=== PATIENT | male | born 1955 | race Caucasian/White ===

== ENCOUNTER 2018-04-29 13:19 | Observation (INO) | payer BC ==
[2018-04-29] MEDS ORDERED: 0.9 % SODIUM CHLORIDE 1,000 ML BAG IV ONE (14:14)
[2018-04-29] MEDS ORDERED: DILTIAZEM 25MG/5ML VIAL IV ONE (14:39)
[2018-04-29 15:01] LABS: HEMATOCRIT 51.8 % (42.0-52.0); HEMOGLOBIN 17.9 gm/dl (14.0-18.0); MEAN CELL VOLUME 94.5 fl (81-97); MEAN CORPUSCULAR HEMOGLOBIN 32.7 pg (27-33); MEAN CORPUSCULAR HGB CONC 34.6 g/dl (32-36); MEAN PLATELET VOLUME 9.3 fl (7.4-10.4); PLATELET COUNT 524 K/uL (130-400); RED BLOOD COUNT 5.48 M/uL (4.40-5.70); RED CELL DISTRIBUTION WIDTH 13.2 % (11.5-14.5); WHITE BLOOD COUNT W/O DIFF 17.6 K/uL (4.2-12.2)
[2018-04-29 15:11] LABS: BLOOD UREA NITROGEN 21 mg/dL (8-23); CREATININE 1.1 mg/dL (0.7-1.2); EST GLOMERULAR FILTRATION RATE > 60 mL/min; TOTAL PROTEIN 7.5 g/dL (6.6-8.7)
[2018-04-29 15:13] LABS: GLUCOSE,RANDOM 121 mg/dL (74-109)
[2018-04-29 15:16] LABS: ALBUMIN 3.7 g/dL (4.0-5.0); ALKALINE PHOSPHATASE 147 U/L (55-149); ALT/SGPT 73 U/L (<41); AST/SGOT 36 U/L (10.0-50.0)
[2018-04-29 15:17] LABS: PLATELET ESTIMATE NORMAL (NORMAL)
[2018-04-29 15:34] LABS: URINE APPEARANCE SL CLOUDY; URINE BILIRUBIN SMALL (NEGATIVE); URINE BLOOD TRACE-L (NEGATIVE); URINE COLOR YELLOW; URINE GLUCOSE (UA) NEGATIVE (NEGATIVE); URINE KETONE 15 mg/dL (NEGATIVE); URINE LEUKOCYTE ESTERASE NEGATIVE (NEGATIVE); URINE NITRITE NEGATIVE (NEGATIVE); URINE PROTEIN TRACE (NEGATIVE)
--- NOTE | 2018-04-29 15:39 | Emergency Department Record ---
History of Present Illness - General Chief complaint: Flu Like Symptoms Stated complaint: FLU Time Seen by Provider: 04/29/18 14:14 Source: Patient Mode of Arrival: Ambulatory Limitations: No limitations - History of Present Illness Initial comments: pt has had 2.5wks of fever, body aches, green productive cough. today he had a near syncopal event. he was admitted to [facility] for 2 days and was told he had the flu. he has been on tamiflu for 5 days. he continues to feel worse w increasing sob and pain w inspiration in the chest MD Complaint: Lack of energy Onset/Timin -: Days(s) Severity scale (1-10): 10 Quality: Aching Consistency: Constant Associated Symptoms: Dysuria, Fever/chills, Nausea/vomiting - [place] Coma Scale Eye Response: (4) Open spontaneously Motor Response: (6) Obeys commands Verbal Response: (5) Oriented Adam Total: 15 - Related Data Home Medications Medication Instructions Recorded Confirmed Last Taken Acetaminophen 325 mg PO QID PRN 04/29/18 04/29/18 1 Day Ago ~04/28/18 Calcium Carbonate/Vitamin D3 1 each PO BID 04/29/18 04/29/18 1 Day Ago [Calcium 500+D Tablet Chew] ~04/28/18 Guaifenesin [Mucinex] 600 mg PO BID 04/29/18 04/29/18 1 Day Ago ~04/28/18 Ipratropium/Albuterol Sulfate 1 - 2 puff IH QID 04/29/18 04/29/18 1 Day Ago [Combivent] ~04/28/18 Oseltamivir Phosphate [Tamiflu] 75 mg PO BID 04/29/18 04/29/18 1 Day Ago ~04/28/18 Allergies Allergy/AdvReac Type Severity Reaction Status Date / Time azithromycin Allergy HYPERSENSIT Verified 04/29/18 14:30 IVITY cephalexin Allergy HIVES Verified 04/29/18 14:30 Latex, Natural Rubber Allergy RASH Verified 04/29/18 14:30 Tetracyclines Allergy RAPID Verified 04/29/18 14:24 HEART RATE clindamycin AdvReac ABDOMINAL Verified 04/29/18 14:30 PAIN Travel Screening - Travel/Exposure Within Last 30 Days Have you traveled within the last 30 days?: No - Travel/Exposure Within Last Year Have you traveled outside the [place] in the last year?: No - Additonal Travel Details Have you been exposed to anyone with a communicable illness?: No - Travel Symptoms Symptom Screening: Joint & Muscle Aches, Vomiting Review of Systems Reviewed: No additional complaints except as noted below Constitutional: Reports: As per HPI, Chills, Fever, Malaise, Weakness. Denies: Night sweats, Weight change Eyes: Reports: As per HPI. Denies: Eye discharge, Eye pain, Photophobia, Vision change ENT: Reports: As per HPI, Congestion. Denies: Dental pain, Ear pain, Epistaxis , Hearing loss, Throat pain Respiratory: Reports: As per HPI, Cough, Dyspnea. Denies: Hemoptysis, Stridor, Wheezes Cardiovascular: Reports: As per HPI. Denies: Arrhythmia, Chest pain, Dyspnea on exertion, Edema, Murmurs, Orthopnea, Palpitations, Paroxysmal nocturnal dyspnea, Rheumatic Fever, Syncope Endocrine: Reports: As per HPI. Denies: Fatigue, Heat or cold intolerance, Polydipsia, Polyuria Gastrointestinal: Reports: As per HPI. Denies: Abdominal pain, Constipation, Diarrhea, Hematemesis, Hematochezia, Melena, Nausea, Vomiting Genitourinary: Reports: As per HPI. Denies: Dysuria, Frequency, Hematuria, Incontinence, Retention, Testicular pain, Testicular mass, Urgency Musculoskeletal: Reports: As per HPI. Denies: Arthralgia, Back pain, Gout, Joint swelling, Myalgia, Neck pain Skin: Reports: As per HPI. Denies: Bruising, Change in color, Change in hair/ nails, Lesions, Pruritus, Rash Neurological: Reports: As per HPI. Denies: Abnormal gait, Confusion, Headache, Numbness, Paresthesias, Seizure, Tingling, Tremors, Vertigo, Weakness Psychiatric: Reports: As per HPI. Denies: Anxiety, Auditory hallucinations, Depression, Homicidal thoughts, Suicidal thoughts, Visual hallucinations Hematological/Lymphatic: Reports: As per HPI. Denies: Anemia, Blood Clots, Easy bleeding, Easy bruising, Swollen glands Past Medical History - SOCIAL HISTORY Smoking Status: Current every day smoker Alcohol Use: Occasional Drug Use: None - RESPIRATORY Hx Respiratory Disorders: Yes Hx COPD: Yes - CARDIOVASCULAR Hx Cardio Disorders: No - NEURO Hx Neuro Disorders: No - GI Hx GI Disorders: Yes Hx Diverticulitis: Yes - Hx Genitourinary Disorders: No - ENDOCRINE Hx Endocrine Disorders: No - MUSCULOSKELETAL Hx Musculoskeletal Disorders: No - PSYCH Hx Psych Problems: No - HEMATOLOGY/ONCOLOGY Hx Hematology/Oncology Disorders: No Family Medical History Any Significant Family History?: No Physical Exam - General General Appearance: Alert, Oriented x3, Cooperative, Mild distress - Head Head exam: Normal inspection - Eye Eye exam: Normal appearance, PERRL, EOMI Pupils: Normal accommodation - ENT ENT exam: Normal exam, Mucous membranes moist, Normal external ear exam, Normal orophraynx Ear exam: Normal external inspection. negative: External canal tenderness Nasal Exam: Normal inspection. negative: Discharge, Sinus tenderness Mouth exam: Normal external inspection, Tongue normal Teeth exam: Normal inspection. negative: Dental caries Throat exam: Normal inspection. negative: Tonsillar erythema, Tonsillar exudate - Neck Neck exam: Normal inspection, Full ROM. negative: Tenderness - Respiratory Respiratory exam: Rales, Respiratory distress - Cardiovascular Cardiovascular Exam: Normal heart sounds, Irregular rhythm, Tachycardia - GI/Abdominal GI/Abdominal exam: Soft, Normal bowel sounds. negative: Tenderness - Rectal Rectal exam: Deferred - exam: Deferred - Extremities Extremities exam: Normal inspection, Full ROM, Normal capillary refill. negative: Tenderness - Back Back exam: Reports: Normal inspection, Full ROM. Denies: Muscle spasm, Rash noted, Tenderness - Neurological Neurological exam: Alert, CN II-XII intact, Normal gait, Oriented X3 - Psychiatric Psychiatric exam: Normal affect, Normal mood - Skin Skin exam: Dry, Intact, Normal color, Warm Course Vital Signs 04/29/18 14:05 Temperature 97.8 F Pulse Rate 168 H Respiratory 24 Rate Blood Pressure 104/77 Pulse Ox 94 L - Reevaluation(s) Reevaluation #1: 04/29/18 18:08 d/w dr mendez who stated to not start on bloodthinners at this time and to get an echo tomorrow Medical Decision Making - Lab Data Result diagrams: 04/29/18 14:20 04/29/18 14:20 Lab Results 04/29/18 04/29/18 04/29/18 Range/Units 14:20 14:20 14:24 WBC 17.6 H (4.2-12.2) K/uL RBC 5.48 (4.40-5.70) M/uL Hgb 17.9 (14.0-18.0) gm/dl Hct 51.8 (42.0-52.0) % MCV 94.5 (81-97) fl MCH 32.7 (27-33) pg MCHC 34.6 (32-36) g/dl RDW 13.2 (11.5-14.5) % Plt Count 524 H (130-400) K/uL MPV 9.3 (7.4-10.4) fl Neutrophils % 83.0 H (47-80) % Eosinophils % Not Reportable Basophils % Not Reportable Lymphocytes 11.0 L (16-45) % Monocytes 6.0 (0-9) % Platelet Estimate Normal (NORMAL) RBC Morphology Normal D-Dimer 0.66 H (0-0.59) mg/L FEU Sodium 137 (136-145) mmol/L Potassium 3.8 (3.4-4.5) mmol/L Chloride 94 L (98-107) mmol/L Carbon Dioxide 26.0 (22-29) mmol/L Anion Gap 17.0 H (7-16) BUN 21 (8-23) mg/dL Creatinine 1.1 (0.7-1.2) mg/dL Estimated GFR > 60 mL/min Random Glucose 121 H (74-109) mg/dL Calcium 9.8 (8.8-10.2) mg/dL Total Bilirubin 1.40 H (0.2-1.0) mg/dL AST 36 (10.0-50.0) U/L ALT 73 H (<41) U/L Alkaline Phosphatase 147 (55-149) U/L Total Protein 7.5 (6.6-8.7) g/dL Albumin 3.7 L (4.0-5.0) g/dL Globulin 3.8 (1.4-4.8) gm/dL Albumin/Globulin Ratio 1.0 L (1.1-1.8) Urine Color Urine Appearance Urine pH (5.0-8.0) Ur Specific [place] (1.002-1.030) Urine Protein (NEGATIVE) Urine Glucose (UA) (NEGATIVE) Urine Ketones (NEGATIVE) Urine Blood (NEGATIVE) Urine Nitrite (NEGATIVE) Urine Bilirubin (NEGATIVE) Urine Urobilinogen (0.20 - 1.00) E.U./dL Ur Leukocyte Esterase (NEGATIVE) 04/29/18 Range/Units 15:20 WBC (4.2-12.2) K/uL RBC (4.40-5.70) M/uL Hgb (14.0-18.0) gm/dl Hct (42.0-52.0) % MCV (81-97) fl MCH (27-33) pg MCHC (32-36) g/dl RDW (11.5-14.5) % Plt Count (130-400) K/uL MPV (7.4-10.4) fl Neutrophils % (47-80) % Eosinophils % Basophils % Lymphocytes (16-45) % Monocytes (0-9) % Platelet Estimate (NORMAL) RBC Morphology D-Dimer (0-0.59) mg/L FEU Sodium (136-145) mmol/L Potassium (3.4-4.5) mmol/L Chloride (98-107) mmol/L Carbon Dioxide (22-29) mmol/L Anion Gap (7-16) BUN (8-23) mg/dL Creatinine (0.7-1.2) mg/dL Estimated GFR mL/min Random Glucose (74-109) mg/dL Calcium (8.8-10.2) mg/dL Total Bilirubin (0.2-1.0) mg/dL AST (10.0-50.0) U/L ALT (<41) U/L Alkaline Phosphatase (55-149) U/L Total Protein (6.6-8.7) g/dL Albumin (4.0-5.0) g/dL Globulin (1.4-4.8) gm/dL Albumin/Globulin Ratio (1.1-1.8) Urine Color Yellow Urine Appearance Sl cloudy Urine pH 7.0 (5.0-8.0) Ur Specific [place] 1.015 (1.002-1.030) Urine Protein Trace H (NEGATIVE) Urine Glucose (UA) Negative (NEGATIVE) Urine Ketones 15 mg/dl H (NEGATIVE) Urine Blood Trace-l (NEGATIVE) Urine Nitrite Negative (NEGATIVE) Urine Bilirubin Small H (NEGATIVE) Urine Urobilinogen 1.0 (0.20 - 1.00) E.U./dL Ur Leukocyte Esterase Negative (NEGATIVE) Disposition Disposition: Admit Clinical Impression: Paroxysmal A-fib Pneumonia Qualifiers: Pneumonia type: due to unspecified organism Laterality: bilateral Lung location : lower lobe of lung Qualified Code(s): J18.1 - Lobar pneumonia, unspecified organism COPD (chronic obstructive pulmonary disease) Qualifiers: COPD type: unspecified COPD Qualified Code(s): J44.9 - Chronic obstructive pulmonary disease, unspecified Disposition: Still a Patient at [facility] Decision to Admit: Admit from ER Decision to Admit Date: 04/29/18 Decision to Admit Time: 18:08 Forms: Patient Portal Access Quality - Quality Measures Quality Measures: N/A - Blood Pressure Screening Does Patient Have Any of the Following: No Blood Pressure Classification: Normal BP Reading Systolic Measurement: 104 Diastolic Measurement: 77 Screening for High Blood Pressure: < Normal BP, F/U Not Required > [G8783]
[2018-04-29 15:40] LABS: URINE AMORPHOUS SEDIMENT 1+; URINE WBC NONE SEEN (0-2/hpf)
[2018-04-29] MEDS ORDERED: LEVOFLOXACIN/D5W 750 MG/150 ML BAG IVPB ONE (17:42)
[2018-04-29] MEDS ORDERED: IPRATROPIUM/ALBUTEROL (0.5MG/3MG) NEB INH ONE (18:03)
[2018-04-29] MEDS ORDERED: 0.9 % SODIUM CHLORIDE 1000ML 1,000 ML IV ONE (18:35)
[2018-04-29] MEDS ORDERED: ALBUTEROL SULFATE (0.083%) 2.5 MG/3 ML NEB INH PRN (19:03)
[2018-04-29] MEDS: ACETAMINOPHEN 500 MG TABLET PO PRN (19:36)
[2018-04-29] MEDS: LEVOFLOXACIN/D5W 750 MG/150 ML BAG IVPB SCH (20:49)
[2018-04-29] MEDS: METHYLPREDNISOLONE PF 125MG/VIAL IVP SCH (20:49)
[2018-04-29] MEDS: OSTELTAMIVIR 75 MG CAP PO SCH (21:45)
[2018-04-30 07:47] LABS: HEMATOCRIT 45.4 % (42.0-52.0); HEMOGLOBIN 15.6 gm/dl (14.0-18.0); MEAN CELL VOLUME 95.6 fl (81-97); MEAN CORPUSCULAR HEMOGLOBIN 32.8 pg (27-33); MEAN CORPUSCULAR HGB CONC 34.4 g/dl (32-36); MEAN PLATELET VOLUME 8.7 fl (7.4-10.4); PLATELET COUNT 427 K/uL (130-400); RED BLOOD COUNT 4.75 M/uL (4.40-5.70); WHITE BLOOD COUNT W/O DIFF 12.5 K/uL (4.2-12.2)
[2018-04-30] MEDS: ACETAMINOPHEN 500 MG TABLET PO PRN (07:49)
--- NOTE | 2018-04-30 07:51 | CT ANGIOGRAM REPORT ---
EXAM: CT ANGIOGRAM OF THE CHEST HISTORY: COUGH, HEADACHE, JOINT PAIN. TECHNIQUE: CT angiogram of the chest was obtained using 80 ml Omnipaque 350 intravenous contrast. Additional maximum intensity projection images were created on an independent workstation. Comparison: None. FINDINGS: Helical opacification of the pulmonary arteries. No pulmonary artery filling defects are seen to suggest embolism. The thoracic aorta is calcified and nondilated. No significant pericardial fluid collection. Coronary artery calcifications are noted. Multiple subcentimeter mediastinal and hilar lymph nodes are noted. No pathologically enlarged lymph nodes are seen. Extensive pulmonary emphysema with prominent anterior left upper lobe bulla and multiple biapical subpleural blebs. Scattered tree-in-bud nodularity involving the anterior inferior right upper lobe, right middle lobe, right lower lobe and scattered throughout the left lung base. There is suggestion of accessory horizontal fissure in the left lung. Peripheral bronchial mucous plugging in the left lower lobe with associated atelectasis. No pleural effusion or pneumothorax. No definite acute osseous findings. Small sclerotic focus in the T9 vertebral body, indeterminate, but could represent a bone island. The visualized upper abdominal structures are unremarkable. IMPRESSION: 1. NO EVIDENCE OF PULMONARY EMPHYSEMA. 2. SCATTERED BILATERAL TREE-IN-BUD PULMONARY NODULARITY SUGGESTING INFECTIOUS OR INFLAMMATORY BRONCHIOLITIS. MUCOUS PLUGGING IN THE LEFT LOWER LOBE WITH ASSOCIATED MILD ATELECTASIS. 3. EXTENSIVE PULMONARY EMPHYSEMA WITH SCATTERED BLEBS AND BULLA. JOB NUMBER: [id number] [facility]
[2018-04-30 08:01] LABS: ALBUMIN 3.1 g/dL (4.0-5.0); ALKALINE PHOSPHATASE 96 U/L (55-149); ALT/SGPT 55 U/L (<41); AST/SGOT 22 U/L (10.0-50.0); BLOOD UREA NITROGEN 14 mg/dL (8-23); CREATININE 0.7 mg/dL (0.7-1.2); EST GLOMERULAR FILTRATION RATE > 60 mL/min; GLUCOSE,RANDOM 103 mg/dL (74-109); TOTAL PROTEIN 6.2 g/dL (6.6-8.7)
[2018-04-30] MEDS: IPRATROPIUM/ALBUTEROL (0.5MG/3MG) NEB INH PRN ×2 (09:31→20:09)
[2018-04-30] MEDS: OSTELTAMIVIR 75 MG CAP PO SCH (09:45)
[2018-04-30] MEDS: METHYLPREDNISOLONE PF 125MG/VIAL IVP SCH ×2 (09:46→21:38)
--- NOTE | 2018-04-30 11:08 | History & Physical ---
History of Present Illness - Date of Service Date of Service for History & Physical: 04/30/18 - History of Present Illness Admitting Diagnosis: pneumonia, paroxsmal afib, copd History of Present Illness: 62 year old male patient presents to ED for continued fever, fatigue, and shortness of breath over the past 2 weeks. Patient was seen at an urgent care in [place] 2 weeks ago and diagnosed with influenza and given Tamiflu. Patient had continued shortness of breath and fatigue and was then hospitalized at [facility] for influenza. Patient states he did not feel any better upon discharge from [facility]. Patient reported feeling fatigue, shortness of breath, and feelings of pre-syncope prior to coming to the ED yesterday. Patient's past medical history includes COPD and current 1ppd smoker PCP: Dr. Chavez ED Course: VS: Temp 97.8F, HR 168, RR 24, BP 104/77, Pulse ox 94% Patient given 10mg Cardizem IVP and converted from a-fib rate 160's to NSR rate 80s 2L IV fluids D-dimer 0.66, WBC 17.6, UA + for ketones and protein Chest CTA: negative for PE, infectious vs inflammatory bronchiolitis, and pulmonary emphysema Spoke with Dr. Elliott for new-onset paroxysmal afib, recommended holding anticoagulant and getting ECHO at this time 04/30/18: A&O x 4, patient resting comfortably in bed. Patient reports significant improvement in symptoms since admission, reports continued shortness of breath with minimal exertion. Patient on 2L oxygen via [place] at this time, receiving Duoneb q6h. 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 Travel Screening - Travel/Exposure Within Last 30 Days Have you traveled within the last 30 days?: No - Travel/Exposure Within Last Year Have you traveled outside the [place] in the last year?: No - Additonal Travel Details Have you been exposed to anyone with a communicable illness?: No - Travel Symptoms Symptom Screening: None Review of Systems Reviewed: No additional complaints except as noted below Constitutional: Reports: As per HPI, Chills, Fever, Malaise, Weakness. Denies: Night sweats, Weight change Eyes: Reports: As per HPI. Denies: Eye discharge, Eye pain, Photophobia, Vision change ENT: Reports: As per HPI, Congestion. Denies: Dental pain, Ear pain, Epistaxis , Hearing loss, Throat pain Respiratory: Reports: As per HPI, Cough, Dyspnea. Denies: Hemoptysis, Stridor, Wheezes Cardiovascular: Reports: As per HPI. Denies: Arrhythmia, Chest pain, Dyspnea on exertion, Edema, Murmurs, Orthopnea, Palpitations, Paroxysmal nocturnal dyspnea, Rheumatic Fever, Syncope Endocrine: Reports: As per HPI. Denies: Fatigue, Heat or cold intolerance, Polydipsia, Polyuria Gastrointestinal: Reports: As per HPI. Denies: Abdominal pain, Constipation, Diarrhea, Hematemesis, Hematochezia, Melena, Nausea, Vomiting Genitourinary: Reports: As per HPI. Denies: Dysuria, Frequency, Hematuria, Incontinence, Retention, Testicular pain, Testicular mass, Urgency Musculoskeletal: Reports: As per HPI. Denies: Arthralgia, Back pain, Gout, Joint swelling, Myalgia, Neck pain Skin: Reports: As per HPI. Denies: Bruising, Change in color, Change in hair/ nails, Lesions, Pruritus, Rash Neurological: Reports: As per HPI. Denies: Abnormal gait, Confusion, Headache, Numbness, Paresthesias, Seizure, Tingling, Tremors, Vertigo, Weakness Psychiatric: Reports: As per HPI. Denies: Anxiety, Auditory hallucinations, Depression, Homicidal thoughts, Suicidal thoughts, Visual hallucinations Hematological/Lymphatic: Reports: As per HPI. Denies: Anemia, Blood Clots, Easy bleeding, Easy bruising, Swollen glands Past Medical History - SOCIAL HISTORY Smoking Status: Current every day smoker - RESPIRATORY Hx Respiratory Disorders: Yes Hx COPD: Yes - CARDIOVASCULAR Hx Cardio Disorders: No - NEURO Hx Neuro Disorders: No - GI Hx GI Disorders: Yes Hx Diverticulitis: Yes - Hx Genitourinary Disorders: No - ENDOCRINE Hx Endocrine Disorders: No - MUSCULOSKELETAL Hx Musculoskeletal Disorders: No - PSYCH Hx Psych Problems: No - HEMATOLOGY/ONCOLOGY Hx Hematology/Oncology Disorders: No Family Medical History Any Significant Family History?: No H&P Meds/Allergies - Allergies Allergies: Allergies Allergy/AdvReac Type Severity Reaction Status Date / Time azithromycin Allergy HYPERSENSIT Verified 04/29/18 14:30 IVITY cephalexin Allergy HIVES Verified 04/29/18 14:30 Latex, Natural Rubber Allergy RASH Verified 04/29/18 14:30 Tetracyclines Allergy RAPID Verified 04/29/18 14:24 HEART RATE clindamycin AdvReac ABDOMINAL Verified 04/29/18 14:30 PAIN - Home Medications Home Medications Medication Instructions Recorded Confirmed Last Taken Acetaminophen 325 mg PO QID PRN 04/29/18 04/29/18 1 Day Ago ~04/28/18 Calcium Carbonate/Vitamin D3 1 each PO BID 04/29/18 04/29/18 1 Day Ago [Calcium 500+D Tablet Chew] ~04/28/18 Guaifenesin [Mucinex] 600 mg PO BID 04/29/18 04/29/18 1 Day Ago ~04/28/18 Ipratropium/Albuterol Sulfate 1 - 2 puff IH QID 04/29/18 04/29/18 1 Day Ago [Combivent] ~04/28/18 Oseltamivir Phosphate [Tamiflu] 75 mg PO BID 04/29/18 04/29/18 1 Day Ago ~04/28/18 - Active Medications Active Medications: Current Medications Acetaminophen (Tylenol 500mg Tab) 1,000 mg PO Q6H PRN PRN Reason: PAIN - MILD(1-4)/FEVER Last Admin: 04/30/18 07:49 Dose: 1,000 mg Albuterol Sulfate (Albuterol Sulfate) 2.5 mg INH RESP.Q4H PRN PRN Reason: DIFFICULTY IN BREATHING Albuterol/Ipratropium (Duoneb) 3 ml INH RESP.Q6H PRN PRN Reason: WHEEZING Last Admin: 04/30/18 09:31 Dose: 3 ml Enoxaparin Sodium (Lovenox) 40 mg SQ DAILY [facility] Levofloxacin/Dextrose (Levaquin 750mg Ivpb) 750 mg in 150 mls @ 125 mls/hr IVPB Q24H [facility] Stop: 05/04/18 19:04 Last Admin: 04/29/18 20:49 Dose: Not Given Sodium Chloride () 1,000 mls @ 100 mls/hr IV .Q10H [facility] Methylprednisolone Sodium Succinate (Solu-Medrol) 60 mg IVP Q8HR [facility] Oseltamivir Phosphate (Tamiflu) 75 mg PO BID [facility] Last Admin: 04/30/18 09:45 Dose: 75 mg Physical Exam - Vital Signs Vital Signs: Vital Signs - Last 24 Hrs Temp Pulse Pulse Pulse Resp BP BP 04/30/18 09:31 105 H 18 04/30/18 06:00 97.9 F 100 H 20 134/89 04/29/18 21:06 97.5 F L 105 H 22 132/93 04/29/18 21:00 82 22 04/29/18 19:43 18 04/29/18 19:04 107 H 18 140/95 04/29/18 18:10 110 H 18 04/29/18 17:30 98 H 132/104 04/29/18 17:00 95 H 130/93 04/29/18 16:30 93 H 131/90 04/29/18 16:12 94 H 16 130/93 04/29/18 15:30 86 16 04/29/18 15:10 84 04/29/18 14:05 97.8 F 168 H 24 104/77 Pulse Ox 04/30/18 09:31 96 04/30/18 06:00 96 04/29/18 21:06 97 04/29/18 21:00 04/29/18 19:43 04/29/18 19:04 95 04/29/18 18:10 95 04/29/18 17:30 04/29/18 17:00 04/29/18 16:30 04/29/18 16:12 97 04/29/18 15:30 95 04/29/18 15:10 04/29/18 14:05 94 L - General General Appearance: Alert, Oriented x3, Cooperative, No acute distress Limitations: No limitations - Head Head exam: Normal inspection - Eye Eye exam: Normal appearance, PERRL, EOMI Pupils: Normal accommodation - ENT ENT exam: Normal exam, Mucous membranes dry, Normal external ear exam Ear exam: Normal external inspection. negative: External canal tenderness Nasal Exam: Normal inspection. negative: Discharge, Sinus tenderness Mouth exam: Normal external inspection, Tongue normal Teeth exam: Normal inspection. negative: Dental caries Throat exam: Normal inspection. negative: Tonsillar erythema, Tonsillar exudate - Neck Neck exam: Normal inspection, Full ROM. negative: Tenderness - Respiratory Respiratory exam: Rales (RLL, LLL). negative: Respiratory distress - Cardiovascular Cardiovascular Exam: Regular rate, Normal rhythm, Normal heart sounds Peripheral Pulses: 2+: Radial (R), Radial (L), Dorsalis Pedis (R), Dorsalis Pedis (L) - GI/Abdominal GI/Abdominal exam: Soft, Normal bowel sounds. negative: Tenderness - Rectal Rectal exam: Deferred - exam: Deferred - Extremities Extremities exam: Normal inspection, Full ROM, Normal capillary refill. negative: Tenderness - Back Back exam: Reports: Normal inspection, Full ROM. Denies: Muscle spasm, Rash noted, Tenderness - Neurological Neurological exam: Alert, Normal gait, Oriented X3 - Psychiatric Psychiatric exam: Normal affect, Normal mood - Skin Skin exam: Dry, Intact, Normal color, Warm Results - Labs Result Diagrams: 04/30/18 07:35 04/30/18 07:35 Labs Last 24 Hours: Laboratory Results - last 24 hr 04/29/18 04/29/18 04/29/18 14:20 14:20 14:24 WBC 17.6 H RBC 5.48 Hgb 17.9 Hct 51.8 MCV 94.5 MCH 32.7 MCHC 34.6 RDW 13.2 Plt Count 524 H MPV 9.3 Neutrophils % 83.0 H Band Neutrophils % Eosinophils % Not Reportable Basophils % Not Reportable Lymphocytes 11.0 L Monocytes 6.0 Basophils Platelet Estimate Normal RBC Morphology Normal Eosinophil Count D-Dimer 0.66 H Sodium 137 Potassium 3.8 Chloride 94 L Carbon Dioxide 26.0 Anion Gap 17.0 H BUN 21 Creatinine 1.1 Estimated GFR > 60 Random Glucose 121 H Calcium 9.8 Total Bilirubin 1.40 H AST 36 ALT 73 H Alkaline Phosphatase 147 Total Protein 7.5 Albumin 3.7 L Globulin 3.8 Albumin/Globulin Ratio 1.0 L Urine Color Urine Appearance Urine pH Ur Specific Howe Urine Protein Urine Glucose (UA) Urine Ketones Urine Blood Urine Nitrite Urine Bilirubin Urine Urobilinogen Ur Leukocyte Esterase Urine RBC Urine WBC Ur Epithelial Cells Amorphous Sediment 04/29/18 04/30/18 04/30/18 15:20 07:35 07:35 WBC 12.5 H RBC 4.75 Hgb 15.6 Hct 45.4 MCV 95.6 MCH 32.8 MCHC 34.4 RDW 13.0 Plt Count 427 H MPV 8.7 Neutrophils % 81.0 H Band Neutrophils % 4.0 Eosinophils % Not Reportable Basophils % Not Reportable Lymphocytes 8.0 L Monocytes 5.0 Basophils 1.0 Platelet Estimate RBC Morphology Eosinophil Count 1.0 D-Dimer Sodium 139 Potassium 3.4 Chloride 99 Carbon Dioxide 28.0 Anion Gap 12.0 BUN 14 Creatinine 0.7 Estimated GFR > 60 Random Glucose 103 Calcium 8.8 Total Bilirubin 0.90 AST 22 ALT 55 H Alkaline Phosphatase 96 Total Protein 6.2 L Albumin 3.1 L Globulin 3.1 Albumin/Globulin Ratio 1.0 L Urine Color Yellow Urine Appearance Sl cloudy Urine pH 7.0 Ur Specific Howe 1.015 Urine Protein Trace H Urine Glucose (UA) Negative Urine Ketones 15 mg/dl H Urine Blood Trace-l Urine Nitrite Negative Urine Bilirubin Small H Urine Urobilinogen 1.0 Ur Leukocyte Esterase Negative Urine RBC 3 - 6 Urine WBC None seen Ur Epithelial Cells 3 - 6 Amorphous Sediment 1+ VTE H&P Assessment - Risk for VTE Risk for VTE: Yes Risk Level: Moderate Risk Assessment Date: 04/30/18 Risk Assessment Time: 11:40 VTE Orders Placed or Will Be Placed: Yes Plan - Inpatient Certification Inpatient Certification: Admit to inpatient care: Based on my medical assessment, after consideration of patient's risk factors (age, co-morbidities and patient presenting symptoms and acuity), I expect that this patient will remain in the hospital greater than or equal to two midnights and that the services needed warrant inpatient care because: Patient Risk Factors: [age, history of COPD, recent hospitalization with influenza, bronchiolitis] Estimated length of stay: The patient may reasonably be expected to be discharged or transferred to a hospital within 36-96 hours after admission to [facility]. Services needed: [IV antibiotics, supplemental oxygen, nebulized breathing treatments, cardiac monitoring, cardiology consult] Post hospital care (if known): I certify that my determination is in accordance with my understanding of Medicare requirements for reasonable and necessary inpatient services. 04/30/18 11:40 - Detailed Diagnosis and Plan (1) Bronchiolitis Current Visit: Yes Status: Acute Base Code: J21.9 - ACUTE BRONCHIOLITIS, UNSPECIFIED Comment: 04/30/18: -CTA chest: infectious v. inflammatory bronchiolitis, negative for PE, pulmonary emphysema -Levaquin 750mg IVP started in ED, will continue daily dose -Solumedrol 60mg q8h -Duoneb q6h -NS 0.9% @100ml/hr for rehydration -Supplemental oxygen to keep pulse ox >92% (2) Paroxysmal A-fib Current Visit: Yes Status: Acute Base Code: I48.0 - PAROXYSMAL ATRIAL FIBRILLATION Comment: 04/30/18: -A-fib in ED, rate 168. 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 -Cardiology consult pending (3) COPD (chronic obstructive pulmonary disease) Current Visit: Yes Status: Acute Qualifiers: COPD type: unspecified COPD Qualified Code(s): J44.9 - Chronic obstructive pulmonary disease, unspecified Base Code: J44.9 - CHRONIC OBSTRUCTIVE PULMONARY DISEASE, UNSPECIFIED Comment : 04/30/18: -Extensive history of COPD -Current 1ppd smoker, reported quitting 2 weeks ago -Continue Duoneb nmt and albuterol inhaler prn at this time -Supplemental oxygen to keep pulse ox >92% (4) DVT prophylaxis Current Visit: Yes Status: Acute Base Code: [id number] - Comment: 04/30/18: Moderate risk due to age, hospitalization, and illness -Lovenox 40mg SQ daily (5) Full code status Current Visit: Yes Status: Acute Base Code: Z78.9 - OTHER SPECIFIED HEALTH STATUS Comment: 04/30/18: Patient is a full code this admission
[2018-04-30 11:46] LABS: INFLUENZA A NEGATIVE (NEGATIVE); INFLUENZA B NEGATIVE (NEGATIVE)
[2018-04-30] MEDS: 0.9 % SODIUM CHLORIDE 1000ML 1,000 ML IV SCH ×2 (11:51→21:38)
[2018-04-30] MEDS: LEVOFLOXACIN/D5W 750 MG/150 ML BAG IVPB SCH (18:10)
[2018-05-01] MEDS: METHYLPREDNISOLONE PF 125MG/VIAL IVP SCH ×2 (05:50→15:31)
[2018-05-01] MEDS: 0.9 % SODIUM CHLORIDE 1000ML 1,000 ML IV SCH ×2 (05:51→18:51)
[2018-05-01 06:53] LABS: HEMOGLOBIN 13.5 gm/dl (14.0-18.0); LYMPH % 4.9 % (16-45); MEAN CELL VOLUME 96.2 fl (81-97); MEAN CORPUSCULAR HGB CONC 33.8 g/dl (32-36); MEAN PLATELET VOLUME 8.8 fl (7.4-10.4); MONO % 2.9 % (0-9); PLATELET COUNT 409 K/uL (130-400); RED BLOOD COUNT 4.16 M/uL (4.40-5.70); RED CELL DISTRIBUTION WIDTH 12.6 % (11.5-14.5); WHITE BLOOD COUNT W/O DIFF 12.3 K/uL (4.2-12.2)
[2018-05-01 06:58] LABS: MEAN CORPUSCULAR HEMOGLOBIN 32.4 pg (27-33)
[2018-05-01 07:16] LABS: ALB/GLOB RATIO 1.1 (1.1-1.8); ALBUMIN 3.1 g/dL (4.0-5.0); ALKALINE PHOSPHATASE 91 U/L (55-149); ALT/SGPT 56 U/L (<41); AST/SGOT 27 U/L (10.0-50.0); BLOOD UREA NITROGEN 10 mg/dL (8-23); CREATININE 0.5 mg/dL (0.7-1.2); EST GLOMERULAR FILTRATION RATE > 60 mL/min; GLUCOSE,RANDOM 159 mg/dL (74-109)
[2018-05-01] MEDS: ACETAMINOPHEN 500 MG TABLET PO PRN ×2 (08:10→15:43)
[2018-05-01] MEDS ORDERED: ENOXAPARIN 40 MG/0.4 ML SYR SQ SCH (10:00)
[2018-05-01] MEDS: IPRATROPIUM/ALBUTEROL (0.5MG/3MG) NEB INH PRN (13:57)
[2018-05-01] MEDS ORDERED: DILTIAZEM HCL 120 MG ER CAPSULE PO SCH (15:00)
[2018-05-01] MEDS: LEVOFLOXACIN/D5W 750 MG/150 ML BAG IVPB SCH (15:48)
--- NOTE | 2018-05-01 15:48 | Discharge Summary ---
Providers Discharge Summary Date: 05/01/18 Date of admission: 04/29/18 18:41 Expected Date of Discharge: 05/01/18 Attending physician: NENA MIRANDA Primary care physician: SAIDA CUMMINGS M.D. Consults: Consult Orders 05/01/18 08:00 Consult - Cardiology NOW Consulting Provider: EMELI BENAVIDEZ Physician Instructions: Reason For Exam: paroxysmal afib Does pt have current machine wood sander?: Not Established Physical Exam - Vital Signs Vital Signs: Vital Signs - Last 24 Hrs Temp Pulse Pulse Pulse Resp BP Pulse Ox 05/01/18 14:00 98.1 F 77 20 138/76 90 L 05/01/18 13:59 74 18 91 L 05/01/18 10:00 97.3 F L 79 18 139/87 97 05/01/18 09:00 68 18 05/01/18 05:45 68 18 148/90 98 05/01/18 05:38 68 12 98 05/01/18 01:48 97.7 F 65 18 152/69 95 04/30/18 22:00 97.9 F 84 18 150/96 95 04/30/18 20:56 88 16 04/30/18 20:15 88 16 04/30/18 20:11 84 20 96 - General General Appearance: Alert, Oriented x3, Cooperative, No acute distress Limitations: No limitations - Head Head exam: Normal inspection - Eye Eye exam: Normal appearance, PERRL, EOMI Pupils: Normal accommodation - ENT ENT exam: Normal exam, Mucous membranes moist, Normal external ear exam Ear exam: Normal external inspection. negative: External canal tenderness Nasal Exam: negative: Discharge, Sinus tenderness Mouth exam: Normal external inspection Teeth exam: negative: Dental caries Throat exam: Normal inspection. negative: Tonsillar erythema, Tonsillar exudate - Neck Neck exam: Normal inspection, Full ROM. negative: Tenderness - Respiratory Respiratory exam: Wheezes (RLL). negative: Accessory muscle use, Respiratory distress - Cardiovascular Cardiovascular Exam: Regular rate, Normal rhythm, Normal heart sounds Peripheral Pulses: 2+: Radial (R), Radial (L), Dorsalis Pedis (R), Dorsalis Pedis (L) - GI/Abdominal GI/Abdominal exam: Soft, Normal bowel sounds. negative: Tenderness - Rectal Rectal exam: Deferred - exam: Deferred - Extremities Extremities exam: Normal inspection, Full ROM, Normal capillary refill. negative: Tenderness - Back Back exam: Reports: Normal inspection, Full ROM. Denies: Muscle spasm, Rash noted, Tenderness - Neurological Neurological exam: Alert, Normal gait, Oriented X3 - Psychiatric Psychiatric exam: Normal affect, Normal mood - Skin Skin exam: Dry, Intact, Normal color, Warm Hospitalization - Hospitalization Admission Diagnosis: pneumonia, paroxsmal afib, copd - Problem List/Discharge Diagnosis (1) Bronchiolitis Current Visit: Yes Status: Acute Base Code: J21.9 - ACUTE BRONCHIOLITIS, UNSPECIFIED Comment: 05/01/18: -CTA chest: infectious v. inflammatory bronchiolitis, negative for PE, pulmonary emphysema -Levaquin 750mg IVP started in ED, will continue daily dose. Will transition to PO dose for a total of 7 days -Solumedrol 60mg q8h. Will continue with Prednisone 50mg daily x 3 days on discharge -Duoneb q6h -Has remained on room air, pulse ox remained >90% (2) Paroxysmal A-fib Current Visit: Yes Status: Acute Base Code: I48.0 - PAROXYSMAL ATRIAL FIBRILLATION Comment: 04/30/18: -A-fib in ED, rate 168. Received 10mg Cardizem IVP and converted to NSR -No history of afib -ECHO: EF 55-60%, dilated right atrium and left atrium, trace mitral regurg, pulmonary hypertension -case monitor: no abnormalities seen -Cardiology consult: started on Cardizem 120mg daily, follow-up outpatient in 2 weeks (3) COPD (chronic obstructive pulmonary disease) Current Visit: Yes Status: Acute Discharge Diagnosis: COPD type: unspecified COPD Qualified Code(s): J44.9 - Chronic obstructive pulmonary disease, unspecified Base Code: J44.9 - CHRONIC OBSTRUCTIVE PULMONARY DISEASE, UNSPECIFIED Comment : 05/01/18: -Extensive history of COPD -Current 1ppd smoker, reported quitting 2 weeks ago -Continue Duoneb nmt and albuterol inhaler prn at this time -Patient to continue using Spiriva and Symbicort at home. Encouraged using Albuterol q6h scheduled for 2-3 days (4) DVT prophylaxis Current Visit: Yes Status: Acute Base Code: [id number] - Comment: 05/01/18: Moderate risk due to age, hospitalization, and illness -Lovenox 40mg SQ daily while hospitalized -No need for further anticoagulant upon discharge as patient will resume normal activity (5) Full code status Current Visit: Yes Status: Acute Base Code: Z78.9 - OTHER SPECIFIED HEALTH STATUS Comment: 05/01/18: Patient is a full code this admission - Hospitalization Course Disposition: Home, Self-Care Hospital Course: 62 year old male patient presents to ED for continued fever, fatigue, and shortness of breath over the past 2 weeks. Patient was seen at an urgent care in [place] 2 weeks ago and diagnosed with influenza and given Tamiflu. Patient had continued shortness of breath and fatigue and was then hospitalized at [facility] for influenza. Patient states he did not feel any better upon discharge from [facility]. Patient reported feeling fatigue, shortness of breath, and feelings of pre-syncope prior to coming to the ED yesterday. Patient's past medical history includes COPD and current 1ppd smoker PCP: Dr. Chavez ED Course: VS: Temp 97.8F, HR 168, RR 24, BP 104/77, Pulse ox 94% Patient given 10mg Cardizem IVP and converted from a-fib rate 160's to NSR rate 80s 2L IV fluids D-dimer 0.66, WBC 17.6, UA + for ketones and protein Chest CTA: negative for PE, infectious vs inflammatory bronchiolitis, and pulmonary emphysema Spoke with Dr. Elliott for new-onset paroxysmal afib, recommended holding anticoagulant and getting ECHO at this time 04/30/18: A&O x 4, patient resting comfortably in bed. Patient reports significant improvement in symptoms since admission, reports continued shortness of breath with minimal exertion. Patient on 2L oxygen via [place] at this time, receiving Duoneb q6h. ECHO report pending, case monitor, Levaquin 750mg daily, influenza testing pending. 05/01/18: A&O x 4, patient resting comfortably in bed. No respiratory distress noted, patient has sustained pulse ox >92% on RA. Cardiology consult completed , wish to start patient on Cardizem 120mg daily and follow-up outpatient. Will continue Levaquin 750mg daily for 7 days total and Prednisone 50mg daily for 3 additional days. Procedures: Imaging and X-Rays 04/29/18 15:37 CHEST CTA w contrast [CTA] Stat Cardiology Procedures 04/29/18 14:15 EKG NOW 04/29/18 15:11 EKG NOW 04/29/18 19:03 Manager Package .Continuous Echocardiogram 2D - Complete ONCE 04/30/18 08:52 Echo W/CF & Cardiac Doppler NOW 05/01/18 13:45 EKG NOW Abnormal Labs: Abnormal Lab Results 04/29/18 04/29/18 04/29/18 Range/Units 14:20 14:20 14:24 WBC 17.6 H (4.2-12.2) K/uL RBC (4.40-5.70) M/uL Hgb (14.0-18.0) gm/dl Hct (42.0-52.0) % Plt Count 524 H (130-400) K/uL Neutrophils % 83.0 H (47-80) % Lymphocytes % (16-45) % Lymphocytes 11.0 L (16-45) % D-Dimer 0.66 H (0-0.59) mg/L FEU Chloride 94 L (98-107) mmol/L Anion Gap 17.0 H (7-16) Creatinine (0.7-1.2) mg/dL Random Glucose 121 H (74-109) mg/dL Total Bilirubin 1.40 H (0.2-1.0) mg/dL ALT 73 H (<41) U/L Total Protein (6.6-8.7) g/dL Albumin 3.7 L (4.0-5.0) g/dL Albumin/Globulin Ratio 1.0 L (1.1-1.8) Urine Protein (NEGATIVE) Urine Ketones (NEGATIVE) Urine Bilirubin (NEGATIVE) 04/29/18 04/30/18 04/30/18 Range/Units 15:20 07:35 07:35 WBC 12.5 H (4.2-12.2) K/uL RBC (4.40-5.70) M/uL Hgb (14.0-18.0) gm/dl Hct (42.0-52.0) % Plt Count 427 H (130-400) K/uL Neutrophils % 81.0 H (47-80) % Lymphocytes % (16-45) % Lymphocytes 8.0 L (16-45) % D-Dimer (0-0.59) mg/L FEU Chloride (98-107) mmol/L Anion Gap (7-16) Creatinine (0.7-1.2) mg/dL Random Glucose (74-109) mg/dL Total Bilirubin (0.2-1.0) mg/dL ALT 55 H (<41) U/L Total Protein 6.2 L (6.6-8.7) g/dL Albumin 3.1 L (4.0-5.0) g/dL Albumin/Globulin Ratio 1.0 L (1.1-1.8) Urine Protein Trace H (NEGATIVE) Urine Ketones 15 mg/dl H (NEGATIVE) Urine Bilirubin Small H (NEGATIVE) 05/01/18 05/01/18 Range/Units 06:40 06:40 WBC 12.3 H (4.2-12.2) K/uL RBC 4.16 L (4.40-5.70) M/uL Hgb 13.5 L (14.0-18.0) gm/dl Hct 40.0 L (42.0-52.0) % Plt Count 409 H (130-400) K/uL Neutrophils % 90.0 H (47-80) % Lymphocytes % 4.9 L (16-45) % Lymphocytes 4.0 L (16-45) % D-Dimer (0-0.59) mg/L FEU Chloride (98-107) mmol/L Anion Gap (7-16) Creatinine 0.5 L (0.7-1.2) mg/dL Random Glucose 159 H (74-109) mg/dL Total Bilirubin (0.2-1.0) mg/dL ALT 56 H (<41) U/L Total Protein 6.0 L (6.6-8.7) g/dL Albumin 3.1 L (4.0-5.0) g/dL Albumin/Globulin Ratio (1.1-1.8) Urine Protein (NEGATIVE) Urine Ketones (NEGATIVE) Urine Bilirubin (NEGATIVE) Condition at Discharge: (2) Stable VTE Discharge VTE Reason For No Overlap Therapy: Not Indicated Discharge Medications - Discharge Medications Prescriptions: Diltiazem HCl [Cardizem Cd] 120 mg PO DAILY #30 cap.er.24h Levofloxacin [Levaquin] 750 mg PO DAILY #4 tab Prednisone 50 mg PO DAILY #3 tablet Home Medications: Ambulatory Orders Acetaminophen 325 mg PO QID PRN 04/29/18 [Last Taken 1 Day Ago ~04/28/18] Calcium Carbonate/Vitamin D3 [Calcium 500+D Tablet Chew] 1 each PO BID 04/29/18 [Last Taken 1 Day Ago ~04/28/18] Guaifenesin [Mucinex] 600 mg PO BID 04/29/18 [Last Taken 1 Day Ago ~04/28/18] Ipratropium/Albuterol Sulfate [Combivent] 1 - 2 puff IH QID 04/29/18 [Last Taken 1 Day Ago ~04/28/18] Diltiazem HCl [Cardizem Cd] 120 mg PO DAILY #30 cap.er.24h 05/01/18 [Last Taken Unknown] Levofloxacin [Levaquin] 750 mg PO DAILY #4 tab 05/01/18 [Last Taken Unknown] Prednisone 50 mg PO DAILY #3 tablet 05/01/18 [Last Taken Unknown] Discharge Plan - Discharge Instructions Activity at Discharge: Increase Activity as Tolerated Diet at Discharge: Regular Diet Instructions: A-fib (Atrial Fibrillation) (DC), Bronchiolitis (DC), Viral Pneumonia (DC), How to Stop Smoking (DC), Cigarette Smoking and Your Health (GEN ), COPD (Chronic Obstructive Pulmonary Disease) (DC) Additional Instructions: -Start the Cardizem (medication for your heart) tomorrow. -Follow-up with cardiology in 2 weeks -Start taking the Levaquin (antibiotic) tomorrow and take it until it is finished -Start taking the Prednisone (steroids) tomorrow and take them until finished -Continue using Spiriva and Symbicort. Use your albuterol inhaler every 6 hours for the next 2-3 days, then continue using it just as needed after that -Stop taking any Tamiflu that you have left as your flu was negative at this time -Follow-up with your PCP in 2 weeks Quality Measures - Quality Measures Quality Measures: Atrial Fibrillation & Atrial Flutter: Chronic Anticoagulation Therapy, Documentation of Current Medications in Medical Record, Screening for High Blood Pressure and F/U Documented - Current Medications Quality Measure: Measure #130: Documentation of Current Medications Documentation of Current Medications: <Current Medications Documented/Reviewed> [G8427] - Blood Pressure Screening Quality Measure: Screening for High Blood Pressure and Follow-Up Documented Does Patient Have Any of the Following: No Blood Pressure Classification: Hypertensive Reading Systolic Measurement: 140 Diastolic Measurement: 95 Screening for High Blood Pressure: < Pre-Hypertensive BP, F/U Documented > [ G8950] Pre-Hypertensive Follow-up Interventions: Referral to alternative/primary care provider. - Atrial Fibrillation and Atrial Flutter Quality Measure: Atrial Fibrillation & Atrial Flutter: Chronic Anticoagulation Therapy Does Patient Have Any of the Following: No CHADS2 Risk Stratification: No Risk Factors Risk Stratification Summary: No risk factors or only one moderate risk factor exists. [G8970] Anticoagulation Therapy: Patient Not Eligible [G8970] - Elder Abuse Suspicion Index EASI Reference Information: Alfred GUY, Mary C, Keven D, Soniya Porras.Development and validation of a tool to assist physicians identification of elder abuse: The Elder Abuse Suspicion Index (EASI ). Journal of Elder Abuse and Neglect, 2008; 20 (3): 276-300.
--- NOTE | 2018-05-03 18:57 | Cardiology Consult ---
DATE OF CONSULTATION: 05/01/2018 REASON FOR CONSULT: ATRIAL FIBRILLATION WITH RAPID VENTRICULAR RESPONSE. HISTORY OF PRESENT ILLNESS: This is a pleasant 62-year-old male who presented to the Emergency Department for fever, fatigue, and shortness of breath over the past two weeks. He has been seen at several other facilities prior to this. Patient on admission was found to be in atrial fibrillation/flutter at 168 beats per minute. He was placed on a Cardizem drip and converted to normal sinus rhythm. Patient states he does not have a previous cardiac history. He denies any episodes of chest pain. He has been having increased dyspnea, which has improved since he has been treated for his pneumonia. Denies palpitations, other than on admission. Does have occasional lightheadedness with ambulation. Denies any lower extremity swelling. Patient denies a family history of premature coronary artery disease. He was a current smoker until admission, smoking one pack per day and does carry the diagnosis of COPD. Patient's EKG today demonstrates normal sinus rhythm at a rate of 73 beats per minute. REVIEW OF SYSTEMS: CONSTITUTIONAL; Positive for fever on admission, malaise, and weakness. HEENT; Negative for headache, visual changes, or hearing changes. No difficulty swallowing. RESPIRATORY; Positive cough. Positive shortness of breath. CARDIOVASCULAR; Negative chest pain. Negative edema. Negative orthopnea. Negative palpitations. ENDOCRINE; No heat or cold intolerance. Negative polydipsia, polyuria. GASTROINTESTINAL; Negative abdominal pain, constipation, diarrhea, melena, nausea, or vomiting. GENITOURINARY; Negative dysuria or frequency. MUSCULOSKELETAL; Negative arthralgia or back pain. SKIN; Negative bruising or rash. NEUROLOGICAL; Negative abnormal gait, confusion, or headache. Negative seizures. PSYCHIATRIC; Negative anxiety or depression. HEMATOLOGICAL/LYMPHATIC; Denies anemia or blood clots. PAST MEDICAL HISTORY: COPD. SOCIAL HISTORY: Current everyday smoker. One pack per day. States quit upon admission. Alcohol use 4 to 5 beers a day. Denies illicit drug use. FAMILY HISTORY: Negative for premature coronary artery disease. ALLERGIES LISTED: AZITHROMYCIN. CEPHALEXIN. LATEX. TETRACYCLINE. CLINDAMYCIN. HOME MEDICATIONS: Tamiflu Mucinex Calcium Supplementation Combivent Inhaler one to two puffs q.i.d. CURRENT MEDICATIONS: Tylenol 500 mg every 6 hours p.r.n. DuoNeb every 6 hours p.r.n. Lovenox 40 mg subcu daily Levaquin 750 mg daily Solu-Medrol 60 mg IV every 8 hours Tamiflu 75 mg p.o. b.i.d. PHYSICAL EXAMINATION: VITAL SIGNS: Blood pressure 148/90. Pulse 68. Respirations 18. He is afebrile. GENERAL: Patient alert and oriented x3. Does not appear to be in any acute distress. HEENT: Normocephalic, atraumatic. Extraocular movements are intact. Pupils are equal and round. NECK: Supple without lymphadenopathy, thyromegaly, or bruits. CARDIAC: Regular rate and rhythm. No significant murmur was appreciated. LUNGS: Few bibasilar coarse breath sounds. Otherwise, clear to auscultation. No wheezing noted. ABDOMEN: Soft, nontender. Bowel sounds positive in all four quadrants. EXTREMITIES: No edema. 2+ pulses bilaterally. SKIN: Warm and dry. DIAGNOSTIC STUDIES: LABORATORIES: WBC 17.6. Hemoglobin 17.9. Hematocrit 51.8. Platelet count 524. Sodium 137. Potassium 3.8. Chloride 94. BUN 21. Creatinine 1.1. D-dimer 0.66. Influenza A and B were negative. CT SCAN: Negative for pulmonary embolism. Noted was extensive pulmonary emphysema and scattered blebs and bullae and an infectious process looking like inflammatory bronchiolitis. Mucous plugging in the left lower lobe. ECHOCARDIOGRAPHY: Demonstrated EF of approximately 55% to 60%. Trace mitral regurgitation. RVSP was 47 mmHg. Aortic valve sclerosis without stenosis. Mild biatrial enlargement. ASSESSMENT/PLAN: 1. ATRIAL FIBRILLATION WITH RVR: Patient currently sinus rhythm. Will add Cardizem CD 120 mg daily. Patient's CHADS VASc score is 0. Patient recommended to follow-up in Clinic in the next two to three weeks. If patient recovered from recent infection, will plan Lexiscan Cardiolite, as patient unable to walk on treadmill due to COPD. 2. COPD: Per primary. 3. BRONCHIOLITIS: Per primary. Patient was instructed to contact our office if he should have any further concerns prior to his scheduled appointment. Thank you for the opportunity to participate in this patient's care. JOB NUMBER: [id number] [facility]
== END 2018-05-01 17:55 | disposition home or self-care (01) ==
LOC: ER 13:19 → MEDSURG 18:41 → INTOOBSV 18:41
PROVIDERS: ADMIT Internal Medicine; ATTEND Internal Medicine
DX: J21.9 Acute bronchiolitis, unspecified (principal); I48.0 Paroxysmal atrial fibrillation; Z79.01 Long term (current) use of anticoagulants; J44.9 Chronic obstructive pulmonary disease, unspecified; R05 Cough; R51 Headache; M25.50 Pain in unspecified joint; F17.210 Nicotine dependence, cigarettes, uncomplicated
CPT/HCPCS: 99285 ×2; 96365; 96375; 96361; 80053 ×3; 81001; 87400; 85379; 85027 ×3; 71275; 94640 ×3; 94761; 93005 ×2; 93010; 94760; 93306; G0378 ×3; Q9967; J1956 ×3; 99217; 99220; J1650; J2930; J7030